=== PATIENT | female | born 1965 | race Caucasian/White ===

== ENCOUNTER → 2017-11-17 | Outpatient (CLI) | payer OTHER ==
[~2017-11-17] MED LIST: ALBU8.5H IH; APIX2.5T PO; APIX5TAB PO; ASP325 PO; CHOL200038 PO; CHOL500025 PO; CITA-139 PO; FES4PT PO; FLU45SYR25 IM ONLY; HYDR28.415 TP; LOR5/325 PO; MELO-207 PO; METH4TAB66 PO; WAR1 PO
[2017-11-17 17:15] LABS: PLATELET COUNT, AUTOMATED 297 K/uL (150-450)
--- NOTE | 2017-11-17 17:33 | RADIOLOGY IMAGING REPORT ---
FACILITY: [facility] PATIENT NAME: Shakila Espinosa : 1965 MR: [id number] V: [id number] EXAM DATE: ORDERING PHYSICIAN: STANLEY GUEVARA TECHNOLOGIST: Location: [facility] Patient: Shakila Espinosa : 1965 Visit/Account:[id number] Date of Sevice: 11/17/2017 Study: Frontal and lateral views of the chest Indication: Chest pressure Comparison study: November 08, 2015 Findings: PA and lateral views of the chest demonstrate no evidence of acute infiltrate. There is no evidence of pleural effusion. There is no evidence of pneumothorax. The mediastinal, cardiac, and diaphragmatic contours are unremarkable. The visualized bony structures are unremarkable. IMPRESSION: Unremarkable chest. Report Dictated By: Pato Drake at 11/17/2017 5:28 PM Report E-Signed By: Pato Drake at 11/17/2017 5:28 PM WSN:[id number]
== END ==
LOC: LAB 16:44
PROVIDERS: ATTEND Emergency Medicine
DX: R07.89 Other chest pain (principal)
CPT/HCPCS: 36415; 71046; 82040; 82247; 82310; 82374; 82435; 82565; 82947; 84075; 84132; 84155; 84295; 84450; 84460; 84484; 84520; 85007; 85027

== ENCOUNTER → 2017-11-21 | Outpatient (CLI) | payer OTHER | LOC: LAB 15:20 | PROVIDERS: ATTEND Emergency Medicine | DX: R06.00 Dyspnea, unspecified (principal) | CPT/HCPCS: 36415; 83880; 85379 ==

== ENCOUNTER 2018-01-04 05:30 | Emergency (ER) | payer OTHER ==
[2018-01-04 05:36] VITALS: BP 143/81
[2018-01-04] MEDS ORDERED: TRAM-420 PO (05:52)
--- NOTE | 2018-01-04 05:53 | ER Report ---
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 Dog came up from behind and bit her right posterior thigh. The dog looked like a Rottweiler mix per the person but ran off before she could look at the dog tags. Police were notified and brought pt to hospital. Pt is on elaquis for dvt in past. PT has no break in her skin but does have bruise and hematoma at area that she was bitten. ROS: Gen: no fevers Skin: + bruising Neuro: neg numbness muscle skeletal: no gait dysfuntion; pain at bite site. Allergies: Coded Allergies: No Known Drug Allergies (Verified , 11/08/15) Home Meds Active Scripts Methylprednisolone (METHYLPREDNISOLONE) 4 Mg Tab.ds.pk, 4 MG PO DIRECTED, #1 PACK 0 Refills Prov:STANLEY GUEVARA MD 11/22/17 Albuterol Sulfate 90 Mcg/Act (PROAIR HFA 90 MCG/ACT) 8.5 Gm Hfa.aer.ad, 2 PUFF IH Q4H, #1 INHALER 0 Refills Prov:STANLEY GUEVARA MD 11/18/17 Apixaban (ELIQUIS) 2.5 Mg Tablet, 1 TAB PO BID, #180 TAB 3 Refills Prov:STANLEY GUEVARA MD 09/07/17 Reported Medications Cholecalciferol (Vitamin D3) (VITAMIN D3) 2,000 Unit Tablet, 1 TAB PO DAILY 08/05/16 Past Medical/Surgical History Pmhx: dvt, asthma Pshx: non contrib Reviewed Nurses Notes: Yes Old Medical Records Reviewed: Yes Hx Smoking: Yes (9 YEARS "VERY LIGHT, 1PACK/MONTH") Smoking Status: Former Smoker Hx Alcohol Use: No Physical Exam General Appearance: The patient is alert, has no immediate need for airway protection and no signs of toxicity. Eyes: Pupils equal and round no pallor or injection, EOMI ENT: no pharyngeal erythema or exudates, Mucous membranes are moist Respiratory: There are no retractions, lungs are clear to auscultation. Cardiovascular: Regular rate and rhythm. pulses are equal and symmetrical Neurological: Cranial nerves II-XII grossly intact, no sensory or motor loss Skin: + 3 x 5cm ecchymosis right mid hamstring with [id number] hematoma; no break in skin Musculoskeletal: FROM of upper and lower extremities DIFFERENTIAL DIAGNOSIS: After history and physical exam differential diagnosis was considered for hematoma, crush injury Medical Decision Making ED Course/Re-evaluation ED Course spoke with pt at length. Pt believes the dog belongs to someone in the neighborhood due to had on collar. PT does not have a break in her jeans or skin. Reviewed rabies shots but pt declined due to low risk without break in skin. + crush injury on blood thinners so will need close follow up . Decision to Disposition Date: Jan 04, 2018 Decision to Disposition Time: 05:46 Depart Departure Impression: Primary Impression: Dog bite of extremity Additional Impressions: Crush injury lower leg Hematoma of leg Condition: Condition Unchanged Disposition: HOME OR SELF-CARE Referrals: STANLEY GUEVARA MD (PCP) 2 Days New Scripts Tramadol Hcl (TRAMADOL HCL) 50 Mg Tablet 50-100 MG PO Q4-6H Y for PAIN, #15 TAB Prov: CATIE DAVIS DO 01/04/18 Patient Instructions: Animal Bite (GEN), Hematoma (ED) Additional Instructions: The bite did not break your skin but did crush your skin/muscle causing a hematoma (blood collection) and bruise. Ice, rest your leg today. Recommend following up with your family doctor in next 48 hours to have your leg rechecked. If symptoms worsen prior to seeing your dog then please return. Tylenol 650mg every 4 hours as needed for pain. Tramadol one every 6 hours as needed for moderate pain. Problem Qualifiers Additional Impressions: Crush injury lower leg Encounter type: initial encounter Laterality: right Qualified Codes: S87.81XA - Crushing injury of right lower leg, initial encounter Hematoma of leg Encounter type: initial encounter Laterality: right Qualified Codes: S80.11XA - Contusion of right lower leg, initial encounter CATIE DAVIS DO Jan 04, 2018 05:53
[2018-01-04] MEDS ORDERED: traMADol 50 MG TAB TH 2 TAB/BOTTLE PO ONE (05:55)
[2018-01-05] MEDS ORDERED: SULF-198 PO (15:29)
[2018-01-05] MEDS ORDERED: ALPR-429 PO (15:37)
== END 2018-01-04 06:06 | disposition home or self-care (01) ==
LOC: ER 05:33
DX: S70.371A Other superficial bite of right thigh, initial encounter (principal); S87.81XA Crushing injury of right lower leg, initial encounter; S80.11XA Contusion of right lower leg, initial encounter; W54.0XXA Bitten by dog, initial encounter
CPT/HCPCS: 99282; C9399

== ENCOUNTER → 2018-09-13 | Outpatient (CLI) | payer OTHER ==
[~2018-09-13] MED LIST changes: +ALPR-429 PO; -CITA-139 PO; +CITA-145 PO; +LINA145C PO; +METR60CR TP; +SULF-198 PO; +TRAM-420 PO
[2018-09-13 15:13] LABS: PLATELET COUNT, AUTOMATED 319 K/uL (150-450)
[2018-09-13 15:19] LABS: LDL CHOLESTEROL 91 mg/dl
--- NOTE | 2018-09-13 21:09 | RADIOLOGY IMAGING REPORT ---
FACILITY: [facility] [place] PATIENT NAME: Shakila Espinosa : 1965 MR: [id number] V: [id number] EXAM DATE: ORDERING PHYSICIAN: STANLEY GUEVARA TECHNOLOGIST: Location: [facility] [place] Patient: Shakila Espinosa : 1965 Visit/Account:[id number] Date of Sevice: 09/13/2018 HAND 1 OR 2 VIEW BILATERAL Given history: Arthritis COMPARISON STUDIES: NONE FINDINGS: Two views of left and right hands. Osseous structures: There is very mild deformity at the base of the left fourth distal phalangeal w hich probably represents old fracture deformity. Osseous structures otherwise unremarkable. Joints: Joints of both hands are unremarkable in appearance without appreciable arthropathic change s. Soft tissues: normal . IMPRESSION: No definite radiographic evidence of arthropathy in the hands. Report Dictated By: Vinod Elizondo MD at 09/13/2018 9:03 PM Report E-Signed By: Vinod Elizondo MD at 09/13/2018 9:06 PM WSN:[id number]
== END ==
LOC: LAB 14:49
PROVIDERS: ATTEND Emergency Medicine
DX: R53.83 Other fatigue (principal); M19.90 Unspecified osteoarthritis, unspecified site
CPT/HCPCS: 36415; 82040; 82247; 82306; 82310; 82374; 82435; 82465; 82565; 82607; 82947; 83718; 84075; 84132; 84155; 84295; 84450; 84460; 84478; 84520; 85025; 86803

== ENCOUNTER → 2018-12-29 | Outpatient (CLI) | payer OTHER ==
[~2018-12-29] MED LIST changes: +CYA1000 PO
== END ==
LOC: RESP 03:01
PROVIDERS: ATTEND Emergency Medicine
DX: G47.33 Obstructive sleep apnea (adult) (pediatric) (principal)

== ENCOUNTER → 2019-01-18 | Outpatient (CLI) | payer OTHER | LOC: RESP 07:30 | PROVIDERS: ATTEND Family Medicine | DX: J98.4 Other disorders of lung (principal) | CPT/HCPCS: 94060; 94726; 94729 ==